=== PATIENT | female | born 1950 | race Two or more races ===

== ENCOUNTER 2018-03-22 09:29 | Outpatient (CLI) | payer OTHER ==
[~2018-03-22 09:29] MED LIST: PREMARIN42.5 G1 VG
== END 2018-03-22 09:31 | disposition home or self-care (01) ==
LOC: SONOGRAMA 09:29
DX: N39.0 Urinary tract infection, site not specified (principal)

== ENCOUNTER 2023-06-08 13:33 | Outpatient (CLI) | payer OTHER | END 2023-06-08 13:36 | disposition home or self-care (01) | LOC: NUCLEAR 13:33 | DX: M81.0 Age-related osteoporosis without current pathological fracture (principal) ==

== ENCOUNTER 2023-06-08 14:18 | Outpatient (CLI) | payer OTHER | END 2023-06-08 14:27 | disposition home or self-care (01) | LOC: RAD 14:18 | PROVIDERS: ATTEND Family Medicine | DX: M25.551 Pain in right hip (principal); M25.552 Pain in left hip; J30.1 Allergic rhinitis due to pollen; J45.41 Moderate persistent asthma with (acute) exacerbation; M41.9 Scoliosis, unspecified ==

== ENCOUNTER 2023-07-06 13:40 | Outpatient (CLI) | payer OTHER | END 2023-07-06 13:45 | disposition home or self-care (01) | LOC: SONOGRAMA 13:40 | PROVIDERS: ATTEND Family Medicine | DX: E04.1 Nontoxic single thyroid nodule (principal) ==

== ENCOUNTER 2023-07-07 09:42 | Outpatient (CLI) | payer OTHER | END 2023-07-07 09:50 | disposition home or self-care (01) | LOC: MRI 09:42 | PROVIDERS: ATTEND Family Medicine | DX: M41.9 Scoliosis, unspecified (principal) | CPT/HCPCS: 72141; 72146; 72148 ==

== ENCOUNTER 2023-10-12 08:13 | Outpatient (CLI) | payer OTHER | END 2023-10-12 08:28 | disposition home or self-care (01) | LOC: MAMO-SONO 08:13 | PROVIDERS: ATTEND Obstetrics & Gynecology Gynecology | DX: N64.4 Mastodynia (principal); Z12.31 Encounter for screening mammogram for malignant neoplasm of breast ==

== ENCOUNTER 2024-02-18 11:02 | Outpatient (CLI) | payer OTHER | END 2024-02-18 11:04 | disposition home or self-care (01) | LOC: TOM 11:02 | DX: R42 Dizziness and giddiness (principal); H54.62 Unqualified visual loss, left eye, normal vision right eye ==

== ENCOUNTER 2024-06-30 07:04 | Outpatient (CLI) | payer OTHER | END 2024-06-30 07:05 | disposition home or self-care (01) | LOC: NUCLEAR 07:04 | PROVIDERS: ATTEND Internal Medicine | DX: I20.9 Angina pectoris, unspecified (principal) | CPT/HCPCS: 78452; 93017; A9500 ==

== ENCOUNTER 2025-06-29 08:05 | Outpatient (CLI) | payer OTHER | END 2025-06-29 08:07 | disposition home or self-care (01) | LOC: NUCLEAR 08:05 | DX: I82.401 Acute embolism and thrombosis of unspecified deep veins of right lower extremity (principal); I87.2 Venous insufficiency (chronic) (peripheral) ==